=== PATIENT | female | born 1955 | race Caucasian/White ===

== ENCOUNTER → 2021-10-14 | Outpatient (CLI) | payer MEDICARE ==
--- NOTE | 2021-10-17 08:25 | KCIC ---
EXAM: 3 views right shoulder DATE: 10/14/2021 1:15 PM INDICATION: Reason: Chronic Rt shoulder pain. / Spl. Instructions: / History: . COMPARISON: No Prior FINDINGS: No acute fracture or dislocation. Lucent lesion in the greater tuberosity possibly intraosseous gangl ion, projectional artifact or underlying primary bone lesion. AC joint DJD with small osteophytes. Sm all inferior glenohumeral osteophytes. IMPRESSION: 1. AC joint and glenohumeral joint DJD. 2. Apparent lucent lesion within the greater tuberosity, possibly projectional although could also r epresent intraosseous ganglion or primary bone lesion. This can be further assessed by MRI, particula rly given the history of chronic right shoulder pain. 3. No acute fracture or dislocation. Electronically signed by: Gigi Almonte MD (10/17/2021 8:23 AM) [id number]
== END ==
LOC: KCIC 13:10
PROVIDERS: ATTEND Family Medicine
DX: M19.011 Primary osteoarthritis, right shoulder (principal); M25.711 Osteophyte, right shoulder; M25.811 Other specified joint disorders, right shoulder
CPT/HCPCS: 73030